=== PATIENT | female | born 1940 | race Caucasian/White ===

== ENCOUNTER 2022-06-09 12:27 | Inpatient (IN) | payer OTHER ==
[~2022-06-09] VITALS: Ht 167.6 cm; Wt 76.2 kg
[2022-06-09] MEDS ORDERED: IV NORMAL SALINE 1000 ML BAG IV ONE (13:00)
[2022-06-09 13:33] LABS: HEMATOCRIT 32.5 % (31.2-41.9); MEAN CORPUSCULAR HEMOGLOBIN 29.9 uug (24.7-32.8); MEAN CORPUSCULAR VOLUME 91.8 fL (75.5-95.3); PLATELET COUNT (AUTO) 260 K/uL (179-408)
--- NOTE | 2022-06-09 13:44 | NUR ---
Pt came in from home. She has a conservator. The [facility] Thermo Cementing Folder Operator got involved due to claims that pt is gravely disable. Per nurse/ social problems specialist Omer Goldstein , patient makes accusations that pharmacies are sending medications, firing caregivers, and maintaining unsafe house,i.e., full of clutter, hoarding, refusing medications and has been having diarrhea (4 episodes today). Today pt says she wants to kill herself per Ms. Goldstein. The caregiver Naomi who has been there for 2 days on a 12 hour shift corroborate the story of Ms. Goldstein that the patient's house has a lot of clutter and that the patient has diarrhea. Pt has probate conservatoship.
[2022-06-09 13:48] LABS: ALANINE AMINOTRANSFERASE 20 U/L (14-59); ALKALINE PHOSPHATASE 108 U/L (50-136); ASPARTATE AMINOTRANSFERASE 25 U/L (15-37); BILIRUBIN,DIRECT 0.1 mg/dL (0.0-0.2); BILIRUBIN,TOTAL 0.3 mg/dL (0.2-1.0); CARBON DIOXIDE 20 mmol/L (21-32); CHLORIDE 98 mmol/L (98-107); CREATININE 1.8 mg/dL (0.6-1.3); GLUCOSE 155 mg/dL (74-106); POTASSIUM 3.7 mmol/L (3.5-5.1); TOTAL PROTEIN, SERUM 7.5 g/dL (6.4-8.2); UREA NITROGEN, BLOOD 30 mg/dL (7-18)
[2022-06-09] MEDS ORDERED: vitamin d3 (14:31)
[2022-06-09] MEDS ORDERED: fish oil PO (14:31)
[2022-06-09] MEDS ORDERED: RESV100C PO (14:31)
[2022-06-09] MEDS ORDERED: NITRO TIME PO (14:31)
[2022-06-09] MEDS ORDERED: [UNRECOGNIZED DRUG - OTHER] PO (14:31)
[2022-06-09] MEDS ORDERED: THYR30TA2 PO (14:31)
[2022-06-09] MEDS ORDERED: VALS160T2 PO (14:31)
[2022-06-09] MEDS ORDERED: [UNRECOGNIZED DRUG - OTHER] (14:31)
[2022-06-09] MEDS ORDERED: MULT-594 PO (14:31)
[2022-06-09] MEDS ORDERED: LEVO500T90 PO (14:31)
[2022-06-09] MEDS ORDERED: ZINC50TA69 PO (14:31)
[2022-06-09] MEDS ORDERED: MAGNESIUM HYDROXIDE 30 ML LIQUID UDC PO PRN (15:45)
[2022-06-09] MEDS ORDERED: CEFTRIAXONE 1 G in IV DEXTROSE 5% 50 ML IV SCH (15:45)
[2022-06-09] MEDS ORDERED: ONDANSETRON 4 MG/2 ML VIAL IV PRN (15:45)
[2022-06-09] MEDS ORDERED: CEFTRIAXONE /D5W 50ML IVPB **ER PYXIS IV ONE (16:49)
--- NOTE | 2022-06-09 17:05 | NUR ---
[id number] Carol, global account manager of behavioral health aware of the need for Psyche eval. Idania on site wastewater systems technician.
--- NOTE | 2022-06-09 17:47 | NUR ---
1729 Contacted Idania calero and she said that she needs to clarify it to Giana Morgan, the preparer making department. She added, they normally don't do their evaluation until the patient is medically cleared. Dr. Villa made aware.
--- NOTE | 2022-06-09 17:49 | NUR ---
per Edmund pharmacist, the pt could be rolled over as transition so the pharmacy could verify all meds. charge nurse Luis M made aware.
--- NOTE | 2022-06-09 18:40 | NUR ---
Pt has mucoid stool, yellowish brown in color with fishy odor. She's incontinent with both bowel and bladder. In and out done as requested by Dr. Meet Villa, chaperoned by Caitie from lab. 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 Sent specimens to lab.
--- NOTE | 2022-06-09 19:19 | NUR ---
URINE: 650 INPUT: 400 ORAL/ 3000 ns/ 250 VANCO/ 50 rOCEPHIN.
--- NOTE | 2022-06-09 19:30 | NUR ---
Patient's caregiver at bedside
--- NOTE | 2022-06-09 19:31 | NUR ---
Report given to DYLON Ruiz
--- NOTE | 2022-06-09 19:45 | NUR ---
Called for bed. Dia OSBORNE will call back
--- NOTE | 2022-06-09 21:05 | NUR ---
called warehouse delivery manager for 1:1 sitter. No available sitter at this time
--- NOTE | 2022-06-09 21:10 | NUR ---
Spoke with Dia OSBORNEpharmacist in charge owner nurse. Was told to call household appliances service technician Devaughn regarding the 1:1 sitter.
--- NOTE | 2022-06-09 21:13 | NUR ---
spoke with Devaughn OSBORNEsteam fitter supervisor maintenance. Was Told patient will stay here overnight because no sitter is available.
[2022-06-09] MEDS ORDERED: VALSARTAN 80 MG TABLET ONE (21:59)
[2022-06-09] MEDS: VALSARTAN 160 MG TABLET PO SCH (22:00)
--- NOTE | 2022-06-10 07:12 | NUR ---
Change of shift report to [place] OSBORNE
--- NOTE | 2022-06-10 07:15 | NUR ---
1 to 1 sitter at the bedside. Patient is resting comfortably in bed with eyes closed, NAD noted. VSS
[2022-06-10] MEDS: THYROID 60 MG TABLET PO SCH (07:30)
[2022-06-10 07:34] LABS: HEMATOCRIT 25.7 % (31.2-41.9); MEAN CORPUSCULAR HEMOGLOBIN 30.4 uug (24.7-32.8); MEAN CORPUSCULAR VOLUME 89.6 fL (75.5-95.3); PLATELET COUNT (AUTO) 237 K/uL (179-408)
[2022-06-10 07:52] LABS: CARBON DIOXIDE 21 mmol/L (21-32); CHLORIDE 103 mmol/L (98-107); CREATININE 1.8 mg/dL (0.6-1.3); GLUCOSE 135 mg/dL (74-106); MAGNESIUM 1.5 mg/dL (1.8-2.4); PHOSPHOROUS 3.3 mg/dL (2.5-4.9); POTASSIUM 3.8 mmol/L (3.5-5.1); UREA NITROGEN, BLOOD 28 mg/dL (7-18)
--- NOTE | 2022-06-10 08:42 | NUR ---
Breakfast tray provided, pt was fed by 1 to 1 Cristin christopher.
[2022-06-10] MEDS ORDERED: Medication Not On Formulary EA (Thyroid (Armour Thyroid) 1 TAB) PO SCH (09:00)
[2022-06-10] MEDS ORDERED: NITRO TIME PO SCH (09:00)
[2022-06-10] MEDS ORDERED: CEFTRIAXONE 1 G in IV DEXTROSE 5% 50 ML IV SCH ×2 (09:00→16:00)
[2022-06-10] MEDS ORDERED: FISH OIL PO SCH (09:00)
[2022-06-10] MEDS ORDERED: ZINC 100 MG PO SCH (09:00)
[2022-06-10] MEDS ORDERED: [UNRECOGNIZED DRUG - OTHER] PO SCH (09:00)
[2022-06-10] MEDS ORDERED: MAGNESIUM SULFATE/D5W 100 ML IV SCH (09:15)
[2022-06-10] MEDS ORDERED: MAGNESIUM SULFATE/D5W 100 ML ONE (09:38)
[2022-06-10] MEDS: VALSARTAN 160 MG TABLET PO SCH ×2 (09:48→16:51)
[2022-06-10] MEDS: MULTIVITAMINS,THERAPEUTIC TABLET PO SCH (09:48)
[2022-06-10 10:20] VITALS: BP 123/57
--- NOTE | 2022-06-10 10:20 | NUR ---
Received report from Nurse Varela from ER. Pt brought up to floor.
--- NOTE | 2022-06-10 14:45 | NUR ---
Pt admitted to tele status from ER (Junctional with HR 71). Centinela reported positive C-Diff; placed on contact precaution, MD notified. Pt is a/o x 3-4, with history of schizophrenia. Psych consult requested by . Pt has a 1:1 sitter at bedside along with caregiver at bedside at this time. Vitals upon admission: 98.1 temp, rr17, BP 123/57, HR 62, SpO2 100% on room air. Pt has right lower extremity wrapped, has a caregiver change it weekly per her primary orthopedic shoe maker. Removed old dressing, cleaned leg, took photo for the chart and reapplied new dressing. Comfort measures provided, call light within reach, Will continue to monitor.
[2022-06-10] MEDS: IV NS 1000 ML 1,000 ML IV PRN (14:54)
[2022-06-10] MEDS: VANCOMYCIN FOR PO/GT/NG USE PO SCH ×3 (14:56→20:16)
[2022-06-10 15:47] VITALS: BP 179/55
--- NOTE | 2022-06-10 16:30 | NUR ---
Pt had temperature of 100.1, refused to take tylenol. Provided cooling measures. Will reassess.
[2022-06-10] MEDS: ACETAMINOPHEN 325 MG TABLET PO PRN (16:33)
--- NOTE | 2022-06-10 17:09 | NUR ---
pt temperature decreased, now at 98.1. no complain of pain or shortness of breath.
[2022-06-10 20:00] VITALS: BP 109/53
[2022-06-11] VITALS: BP 155/59
[2022-06-11] MEDS: IV NS 1000 ML 1,000 ML IV PRN ×2 (03:32→13:31)
[2022-06-11 04:00] VITALS: BP 136/60
[2022-06-11 06:31] LABS: *BILIRUBIN,URIN NEGATIVE (NEGATIVE); *BLOOD, URINE 1+ (NEGATIVE); *CLARITY,URINE CLEAR (CLEAR); *COLOR,URINE YELLOW (YELLOW); *KETONES,URINE NEGATIVE (NEGATIVE); *UROBILINOGEN,URINE 0.2 E.U./dl (NORMAL); LEUKOCYTE ESTERASE ,URINE TRACE (NEGATIVE); NITRITE, URINE NEGATIVE (NEGATIVE); PH,URINE 5.5 (5.0-8.0); UGLUCOSE NEGATIVE (NEGATIVE)
[2022-06-11 06:39] LABS: *CREATININE,URINE 48.4 mg/dL (30-125)
[2022-06-11 06:40] LABS: BACTERIA,URINE FEW /HPF (NONE SEEN); SQUAMOUS EPITHELIAL CELL,UR FEW /HPF (NONE SEEN)
[2022-06-11] MEDS: THYROID 60 MG TABLET PO SCH (06:46)
[2022-06-11 07:02] LABS: HEMATOCRIT 26.6 % (31.2-41.9); MEAN CORPUSCULAR HEMOGLOBIN 29.8 uug (24.7-32.8); MEAN CORPUSCULAR VOLUME 89.1 fL (75.5-95.3); PLATELET COUNT (AUTO) 217 K/uL (179-408)
[2022-06-11 07:19] LABS: CARBON DIOXIDE 19 mmol/L (21-32); CHLORIDE 106 mmol/L (98-107); CREATININE 1.7 mg/dL (0.6-1.3); GLUCOSE 148 mg/dL (74-106); MAGNESIUM 1.8 mg/dL (1.8-2.4); POTASSIUM 3.8 mmol/L (3.5-5.1); UREA NITROGEN, BLOOD 25 mg/dL (7-18)
[2022-06-11] MEDS: MULTIVITAMINS,THERAPEUTIC TABLET PO SCH (09:26)
[2022-06-11] MEDS: VALSARTAN 160 MG TABLET PO SCH ×2 (09:26→17:17)
[2022-06-11] MEDS: VANCOMYCIN FOR PO/GT/NG USE PO SCH ×4 (09:26→22:11)
--- NOTE | 2022-06-11 10:18 | NUR ---
VALE spoke with the patient's probate conservator, Sari Garcia ([phone]) over the phone. SW informed the patient's probate conservator, Sari ([phone]) that the patient will be seen by the psychiatrist, Doctor Arzate when she is medically stable and that she will need a hold for the GPS when she is medically cleared.
--- NOTE | 2022-06-11 10:41 | NUR ---
WOUND CARE CONSULT: PT PRESENTS WITH INCONTINENCE OF URINE AND LOOSE STOOL, RASH TO BREASTFOLDS, PERINEUM, GROIN FOLDS, BUTTOCKS AND STAGE 2 ULCER TO SACRUM WELL DRY WOUND TO RT LOWER LEG WITH SCALY RED SKIN TO LOWER LEG AND FOOT, ALL PRESENT ON ADMISSION. DR BLAND CALLED FOR DPM CONSULT. RECOMMENDATIONS MADE FOR SKIN PROTECTION AND CARE OF RASH/SKIN. DISCUSSED WITH NURSING STAFF. PT NOTED TO BE ANGRY AND SARCASTIC, YELLING AT STAFF, CURSING AND CALLING NAMES. DISCUSSED WITH PMDPhilip MCDOWELL IN AGREEMENT WITH PLAN OF CARE. Addendum: 06/11/22 at 1044 by JESS MANZO RN Amended: Links added.
--- NOTE | 2022-06-11 13:16 | NUR ---
pt temperature elevated but pt refusing to take tylenol. cooling measures provided. notified.
[2022-06-11] MEDS: ARIPIPRAZOLE 5 MG TABLET PO SCH (17:17)
[2022-06-11] MEDS: AMMONIUM LACTATE 12% LOTION 225 GM BOTTLE TP SCH (17:17)
[2022-06-11] MEDS: CLOTRIMAZOLE 1% CREAM 30 GM TUBE TOP SCH (17:18)
[2022-06-11 20:00] VITALS: BP 128/64
[2022-06-11] MEDS ORDERED: METRONIDAZOLE 500 MG/NS 100ML 100 ML IV ONE ×2 (22:21)
[2022-06-11] MEDS ORDERED: CEFTRIAXONE 1 G VIAL ONE (22:22)
[2022-06-11] MEDS: CEFTRIAXONE 1 G in IV DEXTROSE 5% 50 ML IV SCH (22:35)
[2022-06-11] MEDS: METRONIDAZOLE 500 MG/NS 100ML 500 MG in PREMIXED 1 EACH IV SCH (22:35)
[2022-06-11] MEDS: ACETAMINOPHEN 325 MG TABLET PO PRN ×2 (23:06→23:08)
[2022-06-12] VITALS: BP 152/43
[2022-06-12 04:00] VITALS: BP 126/58
[2022-06-12] MEDS: METRONIDAZOLE 500 MG/NS 100ML 500 MG in PREMIXED 1 EACH IV SCH ×3 (05:39→21:23)
[2022-06-12] MEDS: THYROID 60 MG TABLET PO SCH (06:14)
[2022-06-12 07:51] LABS: CARBON DIOXIDE 20 mmol/L (21-32); CHLORIDE 102 mmol/L (98-107); CREATININE 1.6 mg/dL (0.6-1.3); GLUCOSE 141 mg/dL (74-106); POTASSIUM 3.9 mmol/L (3.5-5.1); UREA NITROGEN, BLOOD 26 mg/dL (7-18)
[2022-06-12 08:00] VITALS: BP 180/69
--- NOTE | 2022-06-12 08:00 | NUR ---
AWAKE ALERT AND VERBALLY RESPONSIVE WITH PERIODS OF CONFUSION. REALITY ORIENTATION DONE. NEEDS ATTENDED, DENIES SOB OR ACUTE PAIN. REMAINS FIB-FLUTTER ON MONITOR
[2022-06-12] MEDS: VALSARTAN 160 MG TABLET PO SCH ×2 (08:27→17:15)
[2022-06-12] MEDS: CEFTRIAXONE 1 G in IV DEXTROSE 5% 50 ML IV SCH (08:27)
[2022-06-12] MEDS: MULTIVITAMINS,THERAPEUTIC TABLET PO SCH (08:27)
[2022-06-12] MEDS: ARIPIPRAZOLE 5 MG TABLET PO SCH ×2 (08:28→17:15)
[2022-06-12] MEDS: CLOTRIMAZOLE 1% CREAM 30 GM TUBE TOP SCH ×2 (08:28→15:54)
[2022-06-12] MEDS: ACETAMINOPHEN 325 MG TABLET PO PRN (08:28)
[2022-06-12] MEDS: AMMONIUM LACTATE 12% LOTION 225 GM BOTTLE TP SCH ×2 (08:29→15:55)
[2022-06-12] MEDS: VANCOMYCIN FOR PO/GT/NG USE PO SCH ×4 (08:29→20:09)
[2022-06-12 12:00] VITALS: BP 166/66
[2022-06-12] MEDS: AMLODIPINE 5 MG TABLET PO SCH ×2 (12:47→20:09)
[2022-06-12] MEDS: IV NS 1000 ML 1,000 ML IV PRN (12:48)
--- NOTE | 2022-06-12 13:00 | NUR ---
SEEN BY HOSPITALIST AND TRANSFORMER BUILDER FOR FOLLOW-UP SEE NOTES
--- NOTE | 2022-06-12 15:00 | NUR ---
NO ACUTE CHANGE FRO0M MORNING ASSESSMENT, NO REACTION FROM IV ANTIBIOTICS
--- NOTE | 2022-06-12 18:01 | NUR ---
SEEN BY DR ZARAGOZA FOR FOLLOW-UP REVIEWED MEDS WITH ORDER
[2022-06-12 20:06] VITALS: BP 147/48
[2022-06-12] MEDS: REMEDY ESSENTIAL ZINC PASTE 113 GM TP PRN (22:29)
[2022-06-13] VITALS: BP 139/50
[2022-06-13 04:00] VITALS: BP 140/57
[2022-06-13] MEDS: THYROID 60 MG TABLET PO SCH (05:24)
[2022-06-13] MEDS: METRONIDAZOLE 500 MG/NS 100ML 500 MG in PREMIXED 1 EACH IV SCH ×3 (05:24→21:09)
[2022-06-13 06:49] LABS: HEMATOCRIT 25.7 % (31.2-41.9); MEAN CORPUSCULAR HEMOGLOBIN 30.4 uug (24.7-32.8); MEAN CORPUSCULAR VOLUME 88.5 fL (75.5-95.3); PLATELET COUNT (AUTO) 240 K/uL (179-408)
[2022-06-13 06:55] LABS: CARBON DIOXIDE 18 mmol/L (21-32); CHLORIDE 103 mmol/L (98-107); CREATININE 1.5 mg/dL (0.6-1.3); GLUCOSE 155 mg/dL (74-106); POTASSIUM 3.6 mmol/L (3.5-5.1); UREA NITROGEN, BLOOD 23 mg/dL (7-18)
--- NOTE | 2022-06-13 08:00 | NUR ---
RECEIVED PATIENT IN BED AWAKE ALERT AND COOPERATIVE, ANSWERS QUESTIONS APPROPRIATELY, NO SS OF SOB, C/O PAIN LOWER BACK REPOSITIONED FOR COMFORT. SR ON MONITOR
[2022-06-13] MEDS: VANCOMYCIN FOR PO/GT/NG USE PO SCH ×4 (08:19→20:05)
[2022-06-13] MEDS: MULTIVITAMINS,THERAPEUTIC TABLET PO SCH (08:20)
[2022-06-13] MEDS: VALSARTAN 160 MG TABLET PO SCH ×2 (08:20→16:16)
[2022-06-13] MEDS: AMLODIPINE 5 MG TABLET PO SCH ×2 (08:20→20:07)
[2022-06-13] MEDS: CEFTRIAXONE 1 G in IV DEXTROSE 5% 50 ML IV SCH (08:21)
[2022-06-13] MEDS: AMMONIUM LACTATE 12% LOTION 225 GM BOTTLE TP SCH ×2 (08:22→16:17)
[2022-06-13] MEDS: CLOTRIMAZOLE 1% CREAM 30 GM TUBE TOP SCH ×2 (08:22→15:44)
[2022-06-13] MEDS ORDERED: ARIPIPRAZOLE 5 MG TABLET PO SCH (09:00)
--- NOTE | 2022-06-13 10:58 | NUR ---
NO ACUTE CHANGE FROM MORNING ASSESSMENT
[2022-06-13 11:36] VITALS: BP 124/47
[2022-06-13] MEDS: IV NS 1000 ML 1,000 ML IV PRN ×2 (11:41)
[2022-06-13 15:38] VITALS: BP 115/47
[2022-06-13 20:00] VITALS: BP 157/58
[2022-06-13] MEDS: OLANZAPINE 5 MG TABLET PO SCH (20:07)
[2022-06-13] MEDS: REMEDY ESSENTIAL ZINC PASTE 113 GM TP PRN (22:00)
[2022-06-14] VITALS: BP 118/50
[2022-06-14 04:00] VITALS: BP 130/62
[2022-06-14] MEDS: METRONIDAZOLE 500 MG/NS 100ML 500 MG in PREMIXED 1 EACH IV SCH ×3 (05:09→23:07)
[2022-06-14] MEDS: THYROID 60 MG TABLET PO SCH (06:12)
[2022-06-14] MEDS: MULTIVITAMINS,THERAPEUTIC TABLET PO SCH (08:53)
[2022-06-14] MEDS: AMLODIPINE 5 MG TABLET PO SCH ×2 (08:54→20:25)
[2022-06-14] MEDS: VALSARTAN 160 MG TABLET PO SCH ×2 (08:54→16:57)
[2022-06-14] MEDS: CEFTRIAXONE 1 G in IV DEXTROSE 5% 50 ML IV SCH (08:55)
[2022-06-14] MEDS: VANCOMYCIN FOR PO/GT/NG USE PO SCH ×4 (08:55→20:27)
[2022-06-14] MEDS: AMMONIUM LACTATE 12% LOTION 225 GM BOTTLE TP SCH ×2 (08:56→17:11)
[2022-06-14] MEDS: CLOTRIMAZOLE 1% CREAM 30 GM TUBE TOP SCH ×2 (08:56→17:11)
[2022-06-14 09:47] LABS: CARBON DIOXIDE 18 mmol/L (21-32); CHLORIDE 105 mmol/L (98-107); CREATININE 1.5 mg/dL (0.6-1.3); GLUCOSE 101 mg/dL (74-106); POTASSIUM 3.7 mmol/L (3.5-5.1); UREA NITROGEN, BLOOD 25 mg/dL (7-18)
--- NOTE | 2022-06-14 10:25 | NUR ---
PATIENT SEEN AND EXAMINED BY KRISTIAN MORALES MERCHANDISING DIRECTOR WITH NEW ORDERS AND NOTED
[2022-06-14] MEDS: IV NS 1000 ML 1,000 ML IV PRN ×2 (11:43→23:00)
[2022-06-14 12:34] VITALS: BP 152/54
--- NOTE | 2022-06-14 13:00 | NUR ---
DR ALAS PSYCHIATRIST HERE TO SEE PATIENT WITH NO NEW ORDERS PATIENT REMAIN ON C DIFF PRECAUTION AND ISOLATION AT THIS TIME IVF IN PROGRESS ORDERED WILL CONTINUE TO OBSERVE.
[2022-06-14 16:35] VITALS: BP 155/50
--- NOTE | 2022-06-14 18:00 | NUR ---
PATIENT HAS BEEN COMPLIANT AND COOPERATIVE ALL SHIFT DENIES DISCOMFORTS NOT IN DISTRESS AT THIS TIME.
[2022-06-14 20:00] VITALS: BP 164/61
[2022-06-14] MEDS: OLANZAPINE 5 MG TABLET PO SCH (20:25)
[2022-06-14] MEDS: REMEDY ESSENTIAL ZINC PASTE 113 GM TP PRN (23:08)
[2022-06-15] VITALS: BP 152/62
[2022-06-15 04:00] VITALS: BP 159/65
[2022-06-15] MEDS: METRONIDAZOLE 500 MG/NS 100ML 500 MG in PREMIXED 1 EACH IV SCH ×3 (05:37→21:09)
[2022-06-15] MEDS: THYROID 60 MG TABLET PO SCH (06:42)
[2022-06-15 07:18] LABS: MEAN CORPUSCULAR HEMOGLOBIN 29.9 uug (24.7-32.8); MEAN CORPUSCULAR VOLUME 89.1 fL (75.5-95.3); PLATELET COUNT (AUTO) 219 K/uL (179-408)
--- NOTE | 2022-06-15 07:53 | NUR ---
Awake, alert, oriented x 3, calm. IVF infusing well.
[2022-06-15] MEDS: MULTIVITAMINS,THERAPEUTIC TABLET PO SCH (08:51)
[2022-06-15] MEDS: IV NS 1000 ML 1,000 ML IV PRN ×2 (08:51→23:55)
[2022-06-15] MEDS: VANCOMYCIN FOR PO/GT/NG USE PO SCH ×4 (08:51→20:15)
[2022-06-15] MEDS: CLOTRIMAZOLE 1% CREAM 30 GM TUBE TOP SCH ×2 (08:52→17:07)
[2022-06-15] MEDS: AMMONIUM LACTATE 12% LOTION 225 GM BOTTLE TP SCH ×2 (08:53→17:07)
[2022-06-15] MEDS: VALSARTAN 160 MG TABLET PO SCH ×2 (08:53→17:06)
[2022-06-15] MEDS: AMLODIPINE 5 MG TABLET PO SCH ×2 (08:53→20:22)
--- NOTE | 2022-06-15 11:00 | NUR ---
OOB with PT, able to stand and make steps
[2022-06-15 12:00] VITALS: BP 154/58
--- NOTE | 2022-06-15 13:38 | NUR ---
Social Work consult was requested for a patient on medsurg to assess patients discharge plan. VALE spoke with the patients conservatorSari ([phone]) and rn case manager, Omer Goldstein ([phone]) over the phone. Both patients Sari nascimento and rn case managerOmer are open to the patient going to a locked residential facility. VALE followed up with rn case manager, John, and he stated that the patient was accepted to [facility] and that he updated the conservator, Sari Garcia ([phone]). VALE informed Doctor Arzate of the discharge plan as well.
--- NOTE | 2022-06-15 14:00 | NUR ---
Wound care done. Repositioned comfortably.
[2022-06-15 16:00] VITALS: BP 156/61
[2022-06-15] MEDS ORDERED: METR500T PO (16:40)
[2022-06-15] MEDS ORDERED: AMLO-212 PO (16:40)
[2022-06-15] MEDS ORDERED: VANC500V PO (16:40)
--- NOTE | 2022-06-15 18:00 | NUR ---
IVF infusing well. resting comfortably
--- NOTE | 2022-06-15 19:00 | NUR ---
With discharge order but waiting for authorization for SNF, endorsed
[2022-06-15 20:00] VITALS: BP 148/60
[2022-06-15] MEDS: OLANZAPINE 5 MG TABLET PO SCH (20:15)
[2022-06-16 04:00] VITALS: BP 121/86
[2022-06-16] MEDS: METRONIDAZOLE 500 MG/NS 100ML 500 MG in PREMIXED 1 EACH IV SCH (05:05)
[2022-06-16] MEDS: THYROID 60 MG TABLET PO SCH (06:10)
[2022-06-16 07:20] LABS: HEMATOCRIT 23.3 % (31.2-41.9); MEAN CORPUSCULAR HEMOGLOBIN 30.2 uug (24.7-32.8); MEAN CORPUSCULAR VOLUME 90.1 fL (75.5-95.3); PLATELET COUNT (AUTO) 207 K/uL (179-408)
[2022-06-16 07:21] LABS: CARBON DIOXIDE 19 mmol/L (21-32); CHLORIDE 107 mmol/L (98-107); CREATININE 1.5 mg/dL (0.6-1.3); GLUCOSE 122 mg/dL (74-106); POTASSIUM 3.6 mmol/L (3.5-5.1); UREA NITROGEN, BLOOD 29 mg/dL (7-18)
[2022-06-16] MEDS: MULTIVITAMINS,THERAPEUTIC TABLET PO SCH (08:37)
[2022-06-16] MEDS: AMLODIPINE 5 MG TABLET PO SCH ×2 (08:45→22:54)
[2022-06-16] MEDS: VALSARTAN 160 MG TABLET PO SCH ×2 (08:45→16:29)
[2022-06-16] MEDS: CLOTRIMAZOLE 1% CREAM 30 GM TUBE TOP SCH ×2 (09:00→17:00)
[2022-06-16] MEDS: AMMONIUM LACTATE 12% LOTION 225 GM BOTTLE TP SCH ×2 (09:00→17:00)
--- NOTE | 2022-06-16 09:30 | NUR ---
Pt had her breakfast, no complains of pain or discomfort.
[2022-06-16] MEDS: VANCOMYCIN FOR PO/GT/NG USE PO SCH ×4 (09:32→23:05)
[2022-06-16 11:46] VITALS: BP 134/66
[2022-06-16] MEDS: METRONIDAZOLE 500 MG TABLET PO SCH ×2 (13:08→22:54)
[2022-06-16 15:48] VITALS: BP 152/63
[2022-06-16 20:00] VITALS: BP 150/45
[2022-06-16] MEDS: OLANZAPINE 5 MG TABLET PO SCH (22:54)
[2022-06-17 04:31] VITALS: BP 131/45
--- NOTE | 2022-06-17 05:55 | NUR ---
RECEIVED PT ON THE PHONE AT START OF THE SHIFT NO SIGNS OF RESPIRATORY DISTRESSS NOTED MEDICATION GIVEN ORDERED. PT DENIED PAIN DURING SHIFT WILL CONTINUE TO MONITOR FOR SAFETY.
[2022-06-17] MEDS: METRONIDAZOLE 500 MG TABLET PO SCH (06:45)
[2022-06-17] MEDS: THYROID 60 MG TABLET PO SCH (06:45)
[2022-06-17 06:59] LABS: HEMATOCRIT 23.8 % (31.2-41.9); MEAN CORPUSCULAR HEMOGLOBIN 30.2 uug (24.7-32.8); MEAN CORPUSCULAR VOLUME 89.7 fL (75.5-95.3); PLATELET COUNT (AUTO) 234 K/uL (179-408)
[2022-06-17 07:07] LABS: CARBON DIOXIDE 18 mmol/L (21-32); CHLORIDE 107 mmol/L (98-107); CREATININE 1.5 mg/dL (0.6-1.3); GLUCOSE 124 mg/dL (74-106); POTASSIUM 3.5 mmol/L (3.5-5.1); UREA NITROGEN, BLOOD 26 mg/dL (7-18)
[2022-06-17] MEDS: MULTIVITAMINS,THERAPEUTIC TABLET PO SCH (09:13)
[2022-06-17] MEDS: VANCOMYCIN FOR PO/GT/NG USE PO SCH (09:13)
[2022-06-17] MEDS: AMLODIPINE 5 MG TABLET PO SCH (09:20)
[2022-06-17] MEDS: VALSARTAN 160 MG TABLET PO SCH (09:20)
[2022-06-17] MEDS: AMMONIUM LACTATE 12% LOTION 225 GM BOTTLE TP SCH (09:21)
[2022-06-17] MEDS: CLOTRIMAZOLE 1% CREAM 30 GM TUBE TOP SCH (09:21)
[2022-06-17 12:00] VITALS: BP 118/43
--- NOTE | 2022-06-17 13:14 | NUR ---
Pt is being discharged to [facility]. Report called and given to Connor OSBORNE. Ambulance is here for transport. Pt is a/o x 4 aware and agreeable with discharge. All personal belongings returned to pt including belongings in supervisors safe. Money has been counted in front of patient and pt signed for all personal belongings. NO signs of acute distress. vitals stable . IV and ID bands removed.
== END 2022-06-17 13:10 | DRG 871 ==
LOC: ER 12:27 → TRANSITION 21:29 → TELE3 06-10 09:59 → MEDSURG3 06-15 11:20
PROVIDERS: ADMIT Nurse Practitioner Acute Care; ATTEND Internal Medicine
PROC: 05H533Z Insertion of Infusion Device into Right Subclavian Vein, Percutaneous Approach (ICD-10-PCS; principal; 2022-06-09)
PROC: B546ZZA Ultrasonography of Right Subclavian Vein, Guidance (ICD-10-PCS; 2022-06-09)
DX: A41.9 Sepsis, unspecified organism (principal); G93.41 Metabolic encephalopathy; N17.0 Acute kidney failure with tubular necrosis; I21.A1 Myocardial infarction type 2; A04.72 Enterocolitis due to Clostridium difficile, not specified as recurrent; E44.0 Moderate protein-calorie malnutrition; E87.1 Hypo-osmolality and hyponatremia; N39.0 Urinary tract infection, site not specified; J21.9 Acute bronchiolitis, unspecified; E86.0 Dehydration; E88.09 Other disorders of plasma-protein metabolism, not elsewhere classified; L85.3 Xerosis cutis; Z88.2 Allergy status to sulfonamides; L30.4 Erythema intertrigo; Z73.6 Limitation of activities due to disability; I10 Essential (primary) hypertension; E86.1 Hypovolemia; Z68.27 Body mass index [BMI] 27.0-27.9, adult; F29 Unspecified psychosis not due to a substance or known physiological condition; E11.40 Type 2 diabetes mellitus with diabetic neuropathy, unspecified; S81.811A Laceration without foreign body, right lower leg, initial encounter; X58.XXXA Exposure to other specified factors, initial encounter; Y93.9 Activity, unspecified; Y92.009 Unspecified place in unspecified non-institutional (private) residence as the place of occurrence of the external cause; M79.661 Pain in right lower leg; L30.8 Other specified dermatitis; R62.7 Adult failure to thrive; F03.90 Unspecified dementia, unspecified severity, without behavioral disturbance, psychotic disturbance, mood disturbance, and anxiety; R41.9 Unspecified symptoms and signs involving cognitive functions and awareness; B95.2 Enterococcus as the cause of diseases classified elsewhere; Z20.822 Contact with and (suspected) exposure to COVID-19; I49.3 Ventricular premature depolarization
CPT/HCPCS: 36415; 71045; 76770; 83605; 83735; 84100; 84300; 84484; 85025; 85730; 87040; 87077; 87086; 93005; A4663; A6209; A6213; G0378; J0696; J3370; J3475; J3490; J7040